=== PATIENT | male | born 1990 | race Caucasian/White ===

== ENCOUNTER 2023-06-24 08:41 | Emergency (ER) | payer OTHER, SELFPAY ==
[2023-06-24 08:47] VITALS: BP 128/74; PULSE 82; RESP 18; TEMP 37.1; O2SAT 97; BMI 23.0
[2023-06-24] MEDS: GABAPENTIN 300 MG CAPSULE PO (09:30)
[2023-06-24] MEDS: DEXAMETHASONE 10 MG/ML VIAL PO (09:30)
--- NOTE | 2023-06-24 09:30 | ED_ITS ---
HPI - General Adult General Chief complaint: Extremity Injury, Upper Stated complaint: R/ arm pain and tingling fingers Time Seen by Provider: 06/24/23 08:50 History of Present Illness HPI narrative: 32-year-old male nonsmoker with noncontributory medical history presents for evaluation of right-sided neck and shoulder pain with radiation down into his arm. He states that he went to bed in normal state of health on Monday and upon waking on had symptoms as stated in the absence of any trauma or injury. He denies the use of blood thinners He states that on occasion he has some tingling in his index and middle finger on his right hand as well. He denies any noticeable weakness. He denies any trauma or injury. He is had no fever or chills. He denies any history of the same. He is had no chest pain, shortness of breath or cough. He saw his primary care provider a few days ago and was started on meloxicam but it isn't helping too much yet. Related Data Previous Rx's Medication Instructions Recorded cyclobenzaprine 10 mg tablet 10 mg PO TID PRN muscle spasm #14 06/24/23 tabs gabapentin 300 mg capsule 300 mg PO BEDTIME #14 caps 06/24/23 methylprednisolone 4 mg tablets in See Rx Instructions PO .COMPLEX 06/24/23 a dose pack (Medrol (Pancho)) #21 ea Allergies Allergy/AdvReac Type Severity Reaction Status Date / Time No Known Drug Allergies Allergy Verified 06/24/23 08:54 Review of Systems Review of Systems Narrative: GENERAL: Denies chills, fatigue, malaise, fever, sweats. HEENT: Denies sinus pain, ear pain, sore throat, difficulty swallowing, dizziness. RESPIRATORY: Denies dyspnea, cough, wheezing, hemoptysis, sputum. CARDIOVASCULAR: Denies chest pain, palpitations, orthopnea, edema, GASTROINTESTINAL: Denies nausea, vomiting, abdominal pain, diarrhea, constipation, melena. : Denies dysuria, frequency, incontinence, hematuria, urinary retention. MUSCULOSKELETAL: See HPI SKIN: Denies rash, skin lesions, or other NEUROLOGIC: See HPI PSYCHIATRIC: No concerning psychosocial issues. 12 point review of systems is negative except for those stated above Patient History Social History Smoking Status: Never smoker Smoking Status: Never smoker alcohol intake frequency: 0-2 drinks per day Substance Use Type: does not use Exam Narrative Exam Narrative: GENERAL: [32] year old patient appears stated age. Well-developed patient, in mild distress. HEAD: Atraumatic. Normocephalic. EYES: Pupils equal round and reactive. Extraocular motions intact. No scleral icterus. No injection or drainage. ENT: Nose without bleeding, purulent drainage. Throat without erythema, tonsillar hypertrophy or exudate. Airway patent. NECK: Trachea midline. No midline bony pain, some tenderness in the most inferior portion of the right-sided paraspinal musculature extending into the posterior shoulder, no measurable weakness with muscles of either upper extremity, no change with axial loading CARDIOVASCULAR: Regular rate and rhythm without murmurs, gallops, or rubs. RESPIRATORY: Clear to auscultation. Breath sounds equal bilaterally. No wheezes, rales, or rhonchi. GASTROINTESTINAL: Abdomen soft, non-tender, nondistended. EXTREMITIES: No edema or joint tenderness. Cap refill less than 2 seconds, no numbness reported but he does feel some tingling in the tips of right 2nd and 3rd fingers BACK: Nontender without deformity or crepitance. No flank tenderness. NEURO: AOx3. SKIN: No rash or erythema of visible areas Initial Vital Signs Initial Vital Signs: Vital Signs Temperature 98.7 F 06/24/23 08:47 Pulse Rate 82 06/24/23 08:47 Respiratory Rate 18 06/24/23 08:47 Blood Pressure 128/74 06/24/23 08:47 Pulse Oximetry 97 06/24/23 08:47 Oxygen Delivery Method Room Air 06/24/23 08:47 Course Orders Ordered: Discontinued Medications Dexamethasone (Dexamethasone 10 Mg/Ml Vial) 10 mg PO NOW ONE Stop: 06/24/23 08:58 Last Admin: 06/24/23 09:30 Dose: 10 mg Documented By: TC Gabapentin (Gabapentin 300 Mg Capsule) 300 mg PO NOW ONE Stop: 06/24/23 08:58 Last Admin: 06/24/23 09:30 Dose: 300 mg Documented By: TC Ketorolac Tromethamine (Ketorolac 30 Mg/Ml Vial) 30 mg IM NOW ONE Stop: 06/24/23 08:58 Last Admin: 06/24/23 09:31 Dose: 30 mg Documented By: TC Vital Signs Vital signs: Vital Signs - 8 hr 06/24/23 08:47 Temperature 98.7 F Pulse Rate 82 Respiratory Rate 18 Blood Pressure 128/74 Pulse Oximetry 97 Oxygen Delivery Method Room Air Medical Decision Making [facility] Narrative Medical decision making narrative: [32] year old patient presents with right shoulder and arm pain and tingling Multiple etiologies for patient's symptoms considered including, but not limited to: [Cervical radiculopathy versus other Prior Charts reviewed in our EMR Primary Historian: patient History and physical exam are reassuring, no trauma, fever use of blood thinners to suggest hematoma or infectious process, no change with axial loading and no measurable weakness. Given lack of traumatic injury and no bony pain imaging is not indicated at this time. Patient had been given anti-inflammatories with minimal relief but given radicular symptoms we discussed the use of steroids and gabapentin along with a sling for comfort. Patient's symptoms improved over duration of stay with above-stated therapies. Findings and discharge diagnosis discussed with patient/family followed by verbalization of understanding Return precautions discussed with patient/family whom verbalize understanding of diagnosis and plan Discharge Plan Departure Patient Disposition: Home Clinical Impression: Cervical radiculopathy Instructions: DI for Cervical Radiculopathy Activity Restrictions/Additional Instructions: *You have been diagnosed with [cervical radiculopathy] *What to do: *Please continue to take your regular medications as directed. [ x] New medication prescriptions sent to your pharmacy: [ [facility] in [place]] [ ] New medication written as a paper prescription [ ] No new medications given *Please follow up with your primary care provider in 2-3 days, call for an appointment. Let them know you were seen in the Emergency Department and that we ask that you be seen in follow up. We will electronically transmit a record of today's note if your PCP is in our system *If you do not have a primary care provider please contact the [facility] Resource line at [phone]. They will ask some questions about your medical history and help get you set up with a doctor in the community. *Return to Emergency Department if you should have any new, worsening or concerning symptoms, such as [fever greater than 101 F, shaking chills, worsening pain, persistent vomiting or other bothersome symptoms] Prescriptions: New cyclobenzaprine 10 mg tablet 10 mg PO TID PRN (Reason: muscle spasm) Qty: 14 0RF gabapentin 300 mg capsule 300 mg PO BEDTIME Qty: 14 0RF methylprednisolone [Medrol (Pancho)] 4 mg tablets,dose pack See Rx Instructions .ROUTE .COMPLEX Qty: 21 0RF Rx Instructions: orally per package directions Referrals: ProviderRobb [Primary Care Provider] - Stand Alone Forms: Patient Portal/API
[2023-06-24] MEDS: KETOROLAC 30 MG/ML VIAL IM (09:31)
[2023-06-24 09:47] VITALS: BP 122/77; PULSE 69; RESP 18; O2SAT 100
== END 2023-06-24 09:48 | disposition home or self-care (01) ==
PROVIDERS: Emergency Provider Emergency Medicine
DX: M54.12 Radiculopathy, cervical region (principal); M25.511 Pain in right shoulder
CPT/HCPCS: 96372; 99283; 99284; J1100; J1885

== ENCOUNTER → 2023-07-09 08:41 | Outpatient (CLI) | payer OTHER, SELFPAY ==
--- NOTE | 2023-07-09 08:42 | DI.MRI.S_ITS ---
PROCEDURE: MR CERVICAL SPINE WO CON INDICATIONS: Pain in right upper arm TECHNIQUE: Noncontrast sagittal T1 spin echo and T2 fast spin echo, sagittal STIR, foraminal oblique sagittal T2 fast spin echo, and axial gradient echo or T2 fast spin echo through the cervical spine. COMPARISON: None. FINDINGS: Image quality: Degraded by motion artifact. Alignment and Curvature: There is loss of normal cervical lordosis. Bone Marrow: Marrow demonstrates normal overall signal. Spinal Cord: Visualized spinal cord has normal size and signal. No cerebellar tonsillar herniation. Paraspinous Soft Tissues: No paravertebral masses. Prevertebral soft tissues are normal in thickness. C2-C3: Normal appearance. C3-C4: Mild disc desiccation and diffuse disc bulge. Mild facet and uncovertebral hypertrophy. Mild canal stenosis. Mild bilateral foraminal stenosis. C4-C5: Mild disc desiccation and diffuse disc bulge. Mild facet and uncovertebral hypertrophy. Mild canal stenosis. Mild bilateral foraminal stenosis. C5-C6: Mild disc desiccation and diffuse disc bulge. Mild facet and uncovertebral hypertrophy. Mild canal stenosis. Mild bilateral foraminal stenosis. C6-C7: Moderate disc height loss and desiccation. Mild diffuse disc bulge. Mild facet and uncovertebral hypertrophy. Severe canal stenosis. Mild right cord flattening. Mild bilateral foraminal stenosis. C7-T1: Normal appearance. IMPRESSION: 1. Multilevel degenerative disc and facet disease, as well as uncovertebral hypertrophy. 2. Multilevel canal stenoses, worst at C6-C7 where there is mild cord flattening. 3. Mild multilevel foraminal stenoses. Dictated by: Chapin David M.D. on 07/10/2023 at 14:15 Approved by: Chapin David M.D. on 07/10/2023 at 14:16
== END ==
PROVIDERS: Referring Provider Preventive Medicine Aerospace Medicine; Visit Provider Preventive Medicine Aerospace Medicine
DX: M50.31 Other cervical disc degeneration, high cervical region (principal); M48.02 Spinal stenosis, cervical region; M47.812 Spondylosis without myelopathy or radiculopathy, cervical region; M79.621 Pain in right upper arm
CPT/HCPCS: 72141